=== PATIENT | female | born 1975 | race African-American/Black ===

== ENCOUNTER 2020-08-24 06:07 | Inpatient (IN) | payer OTHER ==
[~2020-08-24] VITALS: Ht 157.5 cm; Wt 117.9 kg
--- NOTE | ~2020-08-24 | O ---
[facility] [place] [address] OPERATIVE REPORT Name: WANDA RAYMOND Room #: 150-3 ADM IN M.R.#: [id number] Admission: 08/24/20 Attend Phys: Michael Nelson MD Discharge: Date of : 77 Report #: [id number] THIS REPORT FOR: cc: HAIDER MCLEAN Sigi P. MD ~ CC: HAIDER Nelson PREOPERATIVE DIAGNOSIS: Morbid obesity. POSTOPERATIVE DIAGNOSES: Morbid obesity, hiatal hernia. OPERATIVE PROCEDURE: 1. Laparoscopic vertical sleeve gastrectomy. 2. Laparoscopic repair of hiatal hernia. OPERATING SURGEON: Michael Nelson MD SPORTS OFFICIAL: Ana Maria Morataya MS3. INDICATIONS FOR THE PROCEDURE: The patient is a 45-year-old pleasant female who presented with features of morbid obesity. She was noted to have a weight of 120 kilograms with a BMI of 49 with the above listed comorbidities. The patient was advised laparoscopic vertical sleeve gastrectomy and hiatal hernia repair. The patient showed understanding and agreed to proceed. DESCRIPTION OF PROCEDURE: After explaining to the patient in detail, an informed consent was obtained, the patient was identified in the preoperative holding area. The patient was transferred to the operating room and was placed in supine position. Sequential compressive devices were placed for DVT prophylaxis. Preoperative antibiotics were given. After induction of anesthesia, the abdomen was prepped and draped in a sterile fashion. Through a left upper quadrant 1 cm incision and using Optiview technique, peritoneal cavity was entered and pneumoperitoneum was created. Thereafter, under direct vision, another 5 mm trocar was placed in the left mid abdomen, another 15 mm trocar was placed in the right mid abdomen, another 5 mm trocar was placed in the right subcostal region and through a 1 cm incision in the epigastrium, a Xiao retractor was introduced and the left lobe of the liver was retracted. On initial inspection, the patient was noted to have a 3 cm size hiatal hernia. I divided the gastrohepatic omentum. The right rebecca was identified. The sac was gently dissected off the right rebecca using hook electrocautery. I continued to dissect the sac anteriorly. The phrenoesophageal membrane was divided. I continued dissection along the left rebecca. To facilitate posterior dissection, I took down initially the gastroepiploic vessels along the greater curvature using EnSeal. I continued this dissection superiorly and the short gastric vessels [address] [address] OPERATIVE REPORT Name: WANDA RAYMOND Room #: 150-3 ADM IN M.R.#: [id number] Admission: 08/24/20 Attend Phys: Michael Nelson MD Discharge: Date of : 77 Report #: [id number] were taken down. The gastrophrenic ligament was divided and the angle of His was mobilized. Distally, the gastroepiploic vessels were taken down up to about 4 cm proximal to the pylorus. I then did a posterior dissection at the hiatus and mobilized the distal esophagus as much as possible. Once this was completed, I then had anesthesia pass a 36-Swedish ViSiGi tube into the stomach. The stomach was suctioned out. This was placed along the lesser curve of the stomach. I then performed a posterior cruroplasty with a [id number]-[id number] Ethibond suture. Two interrupted sutures were placed between the esophagus and the right crura and the left crura to pexy the esophagus and to prevent any recurrence of the hernia. I then divided the stomach in a vertical fashion with multiple Endo-TAYLOR [place] stapler, 2 green loads and multiple gold loads were used to divide the stomach in a vertical fashion to create a loose sleeve around the 36-Swedish bougie. An air leak test was performed by instilling air into the stomach and by irrigation of fluid along the staple line. Absolute hemostasis was ensured. Thorough saline irrigation was given. The sleeve gastrectomy specimen was removed. Approximately about 10 mL of lidocaine and Marcaine mix was instilled under the left hemidiaphragm. The incisions were then closed with 4-0 Monocryl. The 12 mm port site incision was closed with 0 Vicryl for the fascia. Skin was closed with 4-0 Monocryl for all the incisions. Approximately about 10 mL of lidocaine and Marcaine mix was injected into all the incisions. The patient was awoken from anesthesia and was transferred to the recovery room in stable condition. ESTIMATED BLOOD LOSS: Approximately 20 mL. CONDITION OF THE PATIENT: Stable. FLUIDS GIVEN: Per anesthesia notes. SPECIMEN SENT: Sleeve gastrectomy specimen. COMPLICATIONS: None. ANESTHESIA: General anesthesia. By: [id number] Michael Nelson MD /nt
[~2020-08-24 06:07] MED LIST: FERROUS SULFAT325 M1 PO
[2020-08-24 07:00] VITALS: BP 131/73
[2020-08-24 07:26] LABS: HEMATOCRIT 34.3 % (37.0-47.0); MCH 24.4 pg (26.0-34.0); MCHC 32.1 g/dL (28.0-37.0); MCV 75.9 fL (80.0-100.0); RBC 4.51 mil/uL (4.20-5.00); RDW 18.2 % (10.5-14.5); WBC 6.8 thou/uL (4.0-11.0)
[2020-08-24 07:40] LABS: CALCIUM 8.8 mg/dL (8.5-10.1); CREATININE 0.9 mg/dL (0.6-1.0); POTASSIUM 3.2 mmol/L (3.5-5.1); TOTAL BILIRUBIN 0.5 mg/dL (0.2-1.0); TOTAL PROTEIN 8.1 g/dL (6.4-8.2)
--- NOTE | 2020-08-24 11:37 | NUR ---
Patient arrived around 1115 am.
[2020-08-24 12:13] VITALS: BP 125/69
[2020-08-24 15:09] VITALS: BP 149/75
--- NOTE | 2020-08-24 19:52 | NUR ---
A/O, calm and cooperative. got up to the bathroom with standby assist. according to patient, she could not remember the time of last BM, no BM after surgery today. complained of pain in abdomen, pain medication given and worked. complained of nausea, zofran given and worked. Bed rest most of the time, refused to get up to walk around.
[2020-08-24 20:32] VITALS: BP 150/87
[2020-08-25 00:09] VITALS: BP 149/78
[2020-08-25 01:06] LABS: GLYCOHEMOGLOBIN (HGB A1C) 5.7 % (4.8-5.6)
--- NOTE | 2020-08-25 04:41 | NUR ---
ASSUMED CARE OF PT AT 1900. A/O X4 AND UP WITH SBA TO THE BR. PT C/O PAIN TO HER ABDOMEN. PAIN MEDICATION PROVIDED. ASSISTED PT TO AMBULATE AT 1999/0/0 AND PT REFUSED TO WALK AT 0400. WILL BE ASSISTING TO WALK ONCE MORE BEFORE END OF SHIFT. LAP SITES ARE C/D/I. FALL PRECAUTIONS ARE IN PLACE, CALL LIGHT IS WITHIN REACH. SCD'S IN PLACE AND WORKING PROPERLY. AT THIS TIME PT IS LYING IN HER BED AND APPEARS TO BE SLEEPING. WILL CONTINUE TO MONITOR.
[2020-08-25 07:36] VITALS: BP 143/76
[2020-08-25 13:45] VITALS: BP 137/70
--- NOTE | 2020-08-25 13:57 | NUR ---
Spoke with patient who admits with elective sx. 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 Resides in home with steps but no difficulty. 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 Has health insurance. PCP Dr Lissette Cervantes. Has family to assist at dc. patient works from home. No needs from casemgt anticipated.
--- NOTE | 2020-08-25 16:47 | NUR ---
ASSUMED PT CARE THIS AM. PT VITAL SIGNS STABLE, A&OX4. PT PLEASANT, COMPLAINS OF NO PAIN, JUST CRAMPING. PT AMBULATES AROUND UNIT Q2H. PT UP TO BATHROOM, NO BM TODAY. PT TOLERATES ICE CHIPS AND SMALL SIPS OF WATER. IV PATENT, FLUIDS RUNNING. WILL CONTINUE TO MONITOR.
[2020-08-25 17:27] VITALS: BP 137/70
[2020-08-25 17:29] VITALS: BP 141/76
== END 2020-08-25 18:42 | disposition home or self-care (01) | DRG 621 ==
LOC: TBA 06:07 → 4W 06:07 → PRE 07:15 → 4W 11:30 → OR 12:20 → PRE 15:12 → EDSTATUS 15:31 → PRE 15:35 → 4W 08-25 18:42
PROVIDERS: ADMIT Surgery; ATTEND Surgery
PROC: 0DB64Z3 Excision of Stomach, Percutaneous Endoscopic Approach, Vertical (ICD-10-PCS; principal; 2020-08-24)
PROC: 0BQT4ZZ Repair Diaphragm, Percutaneous Endoscopic Approach (ICD-10-PCS; principal; 2020-08-24)
DX: E66.01 Morbid (severe) obesity due to excess calories (principal); K44.9 Diaphragmatic hernia without obstruction or gangrene; Z20.828 Contact with and (suspected) exposure to other viral communicable diseases; Z68.42 Body mass index [BMI] 45.0-49.9, adult
CPT/HCPCS: 10047; 50010; 50101; 50222; 50386; 50555; 50739; 50740; 51489; 52265; 52266; 53307; 53311; 54022; 54118; 55326; 56462; 56525; 56526; 56527; 56531; 57092; 62110; 62900; 70005

== ENCOUNTER 2020-10-01 21:08 | Emergency (ER) | payer OTHER ==
[~2020-10-01] VITALS: Ht 157.5 cm; Wt 112.0 kg
[2020-10-01] MEDS ORDERED: MULTIPLE VITAM1 EAC4 PO (21:55)
[2020-10-01 22:25] LABS: ABSOLUTE NEUTROPHILS 5.7 thou/uL (1.4-8.2); BASOPHILS 1.1 % (0.0-2.0); EOSINOPHILS 0.5 % (0.0-3.0); HEMATOCRIT 30.4 % (37.0-47.0); HEMOGLOBIN 9.7 gm/dL (12.0-15.0); LYMPHOCYTES 26.2 % (24.0-44.0); MCH 24.2 pg (26.0-34.0); MCHC 31.9 g/dL (28.0-37.0); MCV 75.7 fL (80.0-100.0); MONOCYTES 6.1 % (1.0-8.0); PLATELET COUNT 204 thou/uL (150-400); POLYS 66.1 % (36.0-66.0); RBC 4.02 mil/uL (4.20-5.00); RDW 18.8 % (10.5-14.5); WBC 8.6 thou/uL (4.0-11.0)
[2020-10-01 22:31] LABS: CALCIUM 9.2 mg/dL (8.5-10.1); CREATININE 0.9 mg/dL (0.6-1.0); POTASSIUM 3.4 mmol/L (3.5-5.1)
[2020-10-01 22:45] LABS: ALBUMIN 3.4 g/dL (3.4-5.0); TOTAL BILIRUBIN 0.5 mg/dL (0.2-1.0); TOTAL PROTEIN 7.9 g/dL (6.4-8.2)
[2020-10-02] MEDS ORDERED: REGLAN 10 MG TA10 MG PO (01:18)
[2020-10-02 02:28] VITALS: BP 142/78
== END 2020-10-02 02:30 | disposition home or self-care (01) ==
LOC: ER 21:08
PROVIDERS: Emergency Medicine
DX: R11.2 Nausea with vomiting, unspecified (principal); Z79.899 Other long term (current) drug therapy